=== PATIENT | female | born 1960 | race Caucasian/White ===

== ENCOUNTER 2023-04-24 00:07 | Day surgery (SDC) | payer OTHER, SELFPAY ==
[2023-04-05 14:17] VITALS: BMI 27.7
--- NOTE | 2023-04-23 19:09 | PM.HPGS ---
History of Present Illness History of Present Illness Consent: Risks, benefits, and alternatives have been discussed and questions answered. Patient agrees to proceed with procedure. Chief complaint: neoplasm screening Narrative: Mary Lal is a 62 year old female who is referred for colon cancer screening.She had a Tubular adenoma removed about 12 yrs ago And had a couple of small polyps removed at another hospital 5 years ago Review of Systems Review of Systems: All systems reviewed & are unremarkable except as noted in HPI and below PMFSH Past Medical History Medical History History of gastric ulcer (2017) Surgical History Surgical History History of carpal tunnel surgery Hx of knee surgery left Hx of sinus surgery Family History Family History Father CAD (coronary artery disease) Sibling Ovarian cancer Other Cerebrovascular accident Family history of alcoholism Family history of arthritis Family history of cardiovascular disease Family history of mental disorder Social History Social History Smoking packs per day: 2 Smoking cigarettes per day: 40.0 Years smoked: 45 Smoking pack-years: 90.00 Smoking status: Current every day smoker Tobacco type: cigarettes Alcohol intake: former Substance use: never Substance use type: does not use Living arrangements: other Additional living arrangements comments: With Occupation/Education: other Gender identity (if verbalized by the patient): Female Spiritual care concerns: No Agree to blood products: Yes Meds Home Medications and Allergies Home Medications Medication Instructions Recorded Confirmed Type gabapentin 300 mg capsule See Rx Instructions .Route 02/21/22 04/24/23 Rx .COMPLEX #540 caps paroxetine HCl 40 mg tablet 40 mg PO DAILY #90 tabs 10/19/22 04/24/23 Rx verapamil 240 mg 24 hr 240 mg PO DAILY #90 caps 10/19/22 04/24/23 Rx capsule,extended release rifaximin 550 mg tablet (Xifaxan) 550 mg PO .qd #30 tabs 11/23/22 04/24/23 Rx levothyroxine 88 mcg tablet 88 mcg PO DAILY #90 tabs 01/12/23 04/24/23 Rx quetiapine 50 mg tablet 50 mg PO QHS #90 tabs 01/12/23 04/24/23 Rx lactulose 10 gram/15 mL oral See Rx Instructions .Route 02/28/23 04/24/23 Rx solution (Enulose) .COMPLEX #2,838 mL celecoxib 200 mg capsule See Rx Instructions .Route 03/02/23 04/24/23 Rx .COMPLEX #90 caps pantoprazole 40 mg tablet,delayed 40 mg PO QAM #90 tabs 03/06/23 04/24/23 Rx release clonazepam 0.5 mg tablet 0.5 mg PO QHS #90 tabs 04/14/23 04/24/23 Rx Allergies Allergy/AdvReac Type Severity Reaction Status Date / Time Sulfa (Sulfonamide Allergy Intermediate Rash Verified 04/24/23 09:49 Antibiotics) Penicillins Allergy Unknown Rash Verified 04/24/23 09:49 sulfanilamide Allergy Unknown Rash Verified 04/24/23 09:49 Exam Const: General: alert Orientation/consciousness: patient oriented x3 Resp: Auscultation: clear to auscultation bilaterally Cardio: Rhythm: regular rhythm GI: GI Palp: Yes Soft to palpation and No Tenderness to palpation present (GI) Neuro: General: patient oriented x3 Assessment and Plan Assessment and plan (1) Colon cancer screening: Code(s): Z12.11 - Encounter for screening for malignant neoplasm of colon Status: Acute Assessment and Plan: Colonoscopy with possible biopsy or polypectomy or cautery or injection of substances.
[2023-04-24 09:50] VITALS: BP 116/92; PULSE 87; RESP 20; TEMP 36.3; O2SAT 97; BMI 25.5
[2023-04-24] MEDS: LACTATED RINGERS 1,000 ML 150 ML IV CONT (10:08)
--- NOTE | 2023-04-24 10:19 | WPDANESEPPF ---
Anes - Initial Pre Proc Eval Procedure: Operation Date: 04/24/23 11:00 Proposed Procedures p Screening Colonoscopy - Art Reilly MD Date/Time: 04/24/23 10:19 Surgeon: Art Reilly MD Pre Op Diagnosis: neoplasm screening Patient Data Age: 62 Gender: F Height: 1.52 m Weight: 59.3 kg Last Vital Signs Temp 36.3 C L 04/24/23 09:50 Pulse 87 04/24/23 09:50 Resp 20 04/24/23 09:50 BP 116/92 H 04/24/23 09:50 Pulse Ox 97 04/24/23 09:50 O2 Del Method Room Air 04/24/23 09:50 Allergies Allergy/AdvReac Type Severity Reaction Status Date / Time Sulfa (Sulfonamide Allergy Intermediate Rash Verified 04/24/23 09:49 Antibiotics) Penicillins Allergy Unknown Rash Verified 04/24/23 09:49 sulfanilamide Allergy Unknown Rash Verified 04/24/23 09:49 Home Medications Medication Instructions Recorded Confirmed Type gabapentin 300 mg capsule See Rx Instructions .Route 02/21/22 04/24/23 Rx .COMPLEX #540 caps paroxetine HCl 40 mg tablet 40 mg PO DAILY #90 tabs 10/19/22 04/24/23 Rx verapamil 240 mg 24 hr 240 mg PO DAILY #90 caps 10/19/22 04/24/23 Rx capsule,extended release rifaximin 550 mg tablet (Xifaxan) 550 mg PO .qd #30 tabs 11/23/22 04/24/23 Rx levothyroxine 88 mcg tablet 88 mcg PO DAILY #90 tabs 01/12/23 04/24/23 Rx quetiapine 50 mg tablet 50 mg PO QHS #90 tabs 01/12/23 04/24/23 Rx lactulose 10 gram/15 mL oral See Rx Instructions .Route 02/28/23 04/24/23 Rx solution (Enulose) .COMPLEX #2,838 mL celecoxib 200 mg capsule See Rx Instructions .Route 03/02/23 04/24/23 Rx .COMPLEX #90 caps pantoprazole 40 mg tablet,delayed 40 mg PO QAM #90 tabs 03/06/23 04/24/23 Rx release clonazepam 0.5 mg tablet 0.5 mg PO QHS #90 tabs 04/14/23 04/24/23 Rx Patient hx anesthesia problems: none Family hx anesthesia problems: none Results Review: All pre-operative results and documents have been reviewed as part of the pre-operative evaluation. [facility] Past Medical History Medical History History of gastric ulcer (2017) Surgical History Surgical History History of carpal tunnel surgery Hx of knee surgery left Hx of sinus surgery Family History Family History Father CAD (coronary artery disease) Sibling Ovarian cancer Other Cerebrovascular accident Family history of alcoholism Family history of arthritis Family history of cardiovascular disease Family history of mental disorder Social History Social History Smoking packs per day: 2 Smoking cigarettes per day: 40.0 Years smoked: 45 Smoking pack-years: 90.00 Smoking status: Current every day smoker Tobacco type: cigarettes Alcohol intake: former Substance use: never Substance use type: does not use Living arrangements: other Additional living arrangements comments: With Occupation/Education: other Gender identity (if verbalized by the patient): Female Spiritual care concerns: No Agree to blood products: Yes Anes - Eval Final PreProcedure Day of Procedure 04/24/23 10:19 Patient weight: overweight Heart: regular rate and rhythm Lungs: clear to auscultation Airway: Mallampati scale class II Neurological: alert and oriented Last oral intake: >/= 8 hours ASA classification: III Emergent: no Anesthetic plan: proceed Anesthesia type and monitoring: general GIVS and standard monitoring Results Review: All pre-operative results and documents have been reviewed as part of the pre-operative evaluation. Informed Consent: The patient's anesthetic plan and its attendant risks and benefits were discussed with the patient/family/POA. Questions were solicited and answers provided to the satisfaction of the patient/family/POA.
[2023-04-24 11:05] VITALS: BP 98/59; PULSE 61; RESP 20; O2SAT 97
[2023-04-24 11:15] VITALS: BP 125/68; PULSE 62; RESP 22; O2SAT 97
== END 2023-04-24 11:38 | disposition home or self-care (01) ==
PROVIDERS: PCP Family Medicine Adolescent Medicine; Visit Provider Internal Medicine Gastroenterology
PROC: 0DJD8ZZ Inspection of Lower Intestinal Tract, Via Natural or Artificial Opening Endoscopic (ICD-10-PCS; CPT 45378; principal; 2023-04-24 11:00)
DX: Z12.11 Encounter for screening for malignant neoplasm of colon (principal); Z53.8 Procedure and treatment not carried out for other reasons; Z87.11 Personal history of peptic ulcer disease; F17.210 Nicotine dependence, cigarettes, uncomplicated
CPT/HCPCS: 45378; J2704; J7120

== ENCOUNTER 2023-06-02 00:30 | Day surgery (SDC) | payer OTHER, SELFPAY ==
[2023-05-26 14:47] VITALS: BMI 20.9
--- NOTE | 2023-05-31 16:10 | PM.HPGS ---
History of Present Illness History of Present Illness Consent: Risks, benefits, and alternatives have been discussed and questions answered. Patient agrees to proceed with procedure. Chief complaint: neoplasm screening Narrative: Mary Lal is a 62 year old female Referred for colon cancer screening. attempted colonoscopy last month was unsuccessful due to poor results from her prep Review of Systems Review of Systems: All systems reviewed & are unremarkable except as noted in HPI and below PMFSH Past Medical History Medical History History of gastric ulcer (2017) Surgical History Surgical History History of carpal tunnel surgery Hx of knee surgery left Hx of sinus surgery Family History Family History Father CAD (coronary artery disease) Sibling Ovarian cancer Other Cerebrovascular accident Family history of alcoholism Family history of arthritis Family history of cardiovascular disease Family history of mental disorder Social History Social History Smoking packs per day: 2 Smoking cigarettes per day: 40.0 Years smoked: 45 Smoking pack-years: 90.00 Smoking status: Current every day smoker Tobacco type: cigarettes Alcohol intake: former Alcohol use details: quit 2020; unable to determine amount daily prior to remission. States sipped all day Substance use: never Substance use type: does not use Living arrangements: with family Additional living arrangements comments: With Occupation/Education: other Gender identity (if verbalized by the patient): Female Spiritual care concerns: No Agree to blood products: Yes Meds Home Medications and Allergies Home Medications Medication Instructions Recorded Confirmed Type gabapentin 300 mg capsule See Rx Instructions .Route 02/21/22 06/02/23 Rx .COMPLEX #540 caps paroxetine HCl 40 mg tablet 40 mg PO DAILY #90 tabs 10/19/22 06/02/23 Rx verapamil 240 mg 24 hr 240 mg PO DAILY #90 caps 10/19/22 06/02/23 Rx capsule,extended release rifaximin 550 mg tablet (Xifaxan) 550 mg PO .qd #30 tabs 11/23/22 06/02/23 Rx levothyroxine 88 mcg tablet 88 mcg PO DAILY #90 tabs 01/12/23 06/02/23 Rx quetiapine 50 mg tablet 50 mg PO QHS #90 tabs 01/12/23 06/02/23 Rx lactulose 10 gram/15 mL oral See Rx Instructions .Route 02/28/23 06/02/23 Rx solution (Enulose) .COMPLEX #2,838 mL celecoxib 200 mg capsule See Rx Instructions .Route 03/02/23 06/02/23 Rx .COMPLEX #90 caps clonazepam 0.5 mg tablet 0.5 mg PO QHS #90 tabs 05/15/23 06/02/23 Rx Allergies Allergy/AdvReac Type Severity Reaction Status Date / Time Sulfa (Sulfonamide Allergy Intermediate Rash Verified 06/02/23 07:03 Antibiotics) Penicillins Allergy Unknown Rash Verified 06/02/23 07:03 sulfanilamide Allergy Unknown Rash Verified 06/02/23 07:03 Exam Const: General: alert Orientation/consciousness: patient oriented x3 Resp: Auscultation: clear to auscultation bilaterally Cardio: Rhythm: regular rhythm GI: GI Palp: Yes Soft to palpation and No Tenderness to palpation present (GI) Neuro: General: patient oriented x3 Assessment and Plan Assessment and plan (1) Colon cancer screening: Code(s): Z12.11 - Encounter for screening for malignant neoplasm of colon Status: Acute Assessment and Plan: Colonoscopy with possible biopsy or polypectomy or cautery or injection of substances.
[2023-06-02 06:53] VITALS: BP 107/70; PULSE 88; RESP 18; TEMP 36.6; O2SAT 98; BMI 19.5
[2023-06-02] MEDS: LACTATED RINGERS 1,000 ML 150 ML IV CONT (07:24)
--- NOTE | 2023-06-02 07:30 | WPDANESEPPF ---
Anes - Initial Pre Proc Eval Procedure: Operation Date: 06/02/23 08:00 Proposed Procedures p Screening Colonoscopy - Art Reilly MD Date/Time: 06/02/23 07:30 Surgeon: Art Reilly MD Pre Op Diagnosis: neoplasm screening Patient Data Age: 62 Gender: F Height: 1.68 m Weight: 54.8 kg Last Vital Signs Temp 97.8 F 06/02/23 06:53 Pulse 88 06/02/23 06:53 Resp 18 06/02/23 06:53 BP 107/70 06/02/23 06:53 Pulse Ox 98 06/02/23 06:53 O2 Del Method Room Air 06/02/23 06:53 Allergies Allergy/AdvReac Type Severity Reaction Status Date / Time Sulfa (Sulfonamide Allergy Intermediate Rash Verified 06/02/23 07:03 Antibiotics) Penicillins Allergy Unknown Rash Verified 06/02/23 07:03 sulfanilamide Allergy Unknown Rash Verified 06/02/23 07:03 Home Medications Medication Instructions Recorded Confirmed Type gabapentin 300 mg capsule See Rx Instructions .Route 02/21/22 06/02/23 Rx .COMPLEX #540 caps paroxetine HCl 40 mg tablet 40 mg PO DAILY #90 tabs 10/19/22 06/02/23 Rx verapamil 240 mg 24 hr 240 mg PO DAILY #90 caps 10/19/22 06/02/23 Rx capsule,extended release rifaximin 550 mg tablet (Xifaxan) 550 mg PO .qd #30 tabs 11/23/22 06/02/23 Rx levothyroxine 88 mcg tablet 88 mcg PO DAILY #90 tabs 01/12/23 06/02/23 Rx quetiapine 50 mg tablet 50 mg PO QHS #90 tabs 01/12/23 06/02/23 Rx lactulose 10 gram/15 mL oral See Rx Instructions .Route 02/28/23 06/02/23 Rx solution (Enulose) .COMPLEX #2,838 mL celecoxib 200 mg capsule See Rx Instructions .Route 03/02/23 06/02/23 Rx .COMPLEX #90 caps clonazepam 0.5 mg tablet 0.5 mg PO QHS #90 tabs 05/15/23 06/02/23 Rx Patient hx anesthesia problems: none Family hx anesthesia problems: none Results Review: All pre-operative results and documents have been reviewed as part of the pre-operative evaluation. [facility] Past Medical History Medical History History of gastric ulcer (2017) Surgical History Surgical History History of carpal tunnel surgery Hx of knee surgery left Hx of sinus surgery Family History Family History Father CAD (coronary artery disease) Sibling Ovarian cancer Other Cerebrovascular accident Family history of alcoholism Family history of arthritis Family history of cardiovascular disease Family history of mental disorder Social History Social History Smoking packs per day: 2 Smoking cigarettes per day: 40.0 Years smoked: 45 Smoking pack-years: 90.00 Smoking status: Current every day smoker Tobacco type: cigarettes Alcohol intake: former Alcohol use details: quit 2020; unable to determine amount daily prior to remission. States sipped all day Substance use: never Substance use type: does not use Living arrangements: with family Additional living arrangements comments: With Occupation/Education: other Gender identity (if verbalized by the patient): Female Spiritual care concerns: No Agree to blood products: Yes Anes - Eval Final PreProcedure Day of Procedure 06/02/23 07:30 Patient weight: normal Heart: regular rate and rhythm Lungs: clear to auscultation Airway: Mallampati scale class II Neurological: alert and oriented Last oral intake: >/= 8 hours ASA classification: II Emergent: no Anesthetic plan: proceed Anesthesia type and monitoring: general GIVS and standard monitoring Results Review: All pre-operative results and documents have been reviewed as part of the pre-operative evaluation. Informed Consent: The patient's anesthetic plan and its attendant risks and benefits were discussed with the patient/family/POA. Questions were solicited and answers provided to the satisfaction of the patient/family/POA.
[2023-06-02 08:20] VITALS: BP 85/55; PULSE 72; RESP 16; O2SAT 97
[2023-06-02 08:30] VITALS: BP 106/57; PULSE 78; RESP 18; O2SAT 97
[2023-06-02 08:40] VITALS: BP 117/83; PULSE 74; RESP 20; O2SAT 97
== END 2023-06-02 08:50 | disposition home or self-care (01) ==
PROVIDERS: PCP Family Medicine Adolescent Medicine; Visit Provider Internal Medicine Gastroenterology
PROC: 0DJD8ZZ Inspection of Lower Intestinal Tract, Via Natural or Artificial Opening Endoscopic (ICD-10-PCS; CPT 45378; principal; 2023-06-02 08:00)
DX: Z12.11 Encounter for screening for malignant neoplasm of colon (principal); K64.8 Other hemorrhoids; F17.210 Nicotine dependence, cigarettes, uncomplicated
CPT/HCPCS: 45378; J2704; J7120